=== PATIENT | male | born 1985 | race Caucasian/White ===

== ENCOUNTER 2019-06-19 23:05 | Emergency (ER) | payer OTHER ==
[~2019-06-19] VITALS: Ht 188 cm; Wt 122.5 kg
[2019-06-19 23:20] VITALS: BP 153/83
[2019-06-19] MEDS ORDERED: PRED20TA PO (23:33)
--- NOTE | 2019-06-19 23:35 | PHYS DOC ---
Past Medical History Past Medical History: No Pertinent History Past Surgical History: No Surgical History Additional Information: Nonsmoker Alcohol Use: Rarely Drug Use: None Adult General Chief Complaint Chief Complaint: CELLULITIS HPI HPI 34-year-old male presents with report of "wasp sting" to right ankle which occurred yesterday. Patient reports history of significant swelling due to bee stings. Patient denies respiratory distress or involvement. Reports going to work today and wears lace up work boots. Reports upon taking off boots tonight he noted significant swelling and erythema to area. Patient reports noting some "yellow discharge" out of the site of the sting. Reports his spouse was concerned that he might have a "staph infection". Denies fever/chills. Review of Systems Review of Systems Constitutional: Denies fever or chills Eyes: Denies redness or eye pain : Denies dysuria or hematuria Musculoskeletal: Denies back pain; right ankle swelling Integument: Right ankle swelling and redness; Neurologic: Denies headache, focal weakness or sensory changes Complete systems were reviewed and found to be within normal limits, except as documented in this note. Current Medications Current Medications Current Medications Medications (Trade) Dose Ordered Sig/Perry Start Time Stop Time Status Last Admin Dose Admin Dexamethasone (Decadron) 10 mg 1X ONCE 06/19/19 23:45 06/19/19 23:44 DC 06/19/19 23:39 10 MG Allergies Allergies Allergies Coded Allergies Type Severity Reaction Last Updated Verified No Known Drug Allergies 06/19/19 No Physical Exam Physical Exam Constitutional: Well developed, well nourished, no acute distress, non-toxic appearance HENT: Normocephalic, atraumatic, oropharynx moist Eyes: Conjunctiva normal, no discharge Neck: Normal range of motion, supple Cardiovascular: Right foot CR < 2 sec, right DP and PT +2 Lungs & Thorax: No respiratory distress Skin: Warm, dry, right ankle with lateral swelling at sight of wasp sting with erythema, no induration or fluctuance Extremities: No deformity, ROM intact, right ankle swelling and erythema as above Neurologic: Alert and oriented X 3, no focal deficits noted Psychologic: Affect normal, judgement normal Current Patient Data Vital Signs Vital Signs Date Time Temp Pulse Resp B/P (MAP) Pulse Ox O2 Delivery O2 Flow Rate FiO2 06/19/19 23:20 97.9 77 16 153/83 (106) 99 Room Air 97.9 EKG EKG [] Radiology/Procedures Radiology/Procedures [] Course & Med Decision Making Course & Med Decision Making Patient presents with report of loss being to right ankle now with some erythema and swelling. Patient with concern for infectious process. Patient advised more likely localized inflammation. Symptomatic steroid provided. Patient offered wound cleaning with Neosporin placement as well as oral Benadryl which he deferred. Patient reports he will do both upon returning home. Patient also advised to elevate extremity. Prescription for continued steroid provided. Patient stable for discharge with outpatient follow-up with PCP. Discussed findings and plan with patient and family, who acknowledge understanding and agreement. Dragon Disclaimer Dragon Disclaimer This electronic medical record was generated, in whole or in part, using a voice recognition dictation system. Departure Departure Impression: Primary Impression: Wasp sting Disposition: HOME, SELF-CARE Condition: STABLE Referrals: NO PCP (PCP) Patient Instructions: Bee, Wasp, or Hornet Sting Additional Instructions: Use over the counter Benadryl 25mg (1 tab) four times daily for next few days as needed for swelling or redness. Clean wound daily with soap and water. Apply over the counter antibiotic ointment to sting site with a bandaid. Elevated affected limb to help with swelling. Scripts Prednisone (PREDNISONE) 20 Mg Tablet 2 TAB PO DAILY, #8 TAB Start this prescription tomorrow, Friday06/20/19 Prov: SAVAGE SEGURA DO 06/19/19 Problem Qualifiers Primary Impression: Wasp sting Encounter type: initial encounter Injury intent: undetermined intent Qualified Codes: T63.464A - Toxic effect of venom of wasps, undetermined, initial encounter SAVAGE SEGURA DO Jun 19, 2019 23:35
[2019-06-19] MEDS ORDERED: DEXAMETHASONE 4 MG TABLET PO ONE (23:45)
== END 2019-06-19 23:44 | disposition home or self-care (01) ==
LOC: ER 23:05
DX: T63.464A Toxic effect of venom of wasps, undetermined, initial encounter (principal); M79.89 Other specified soft tissue disorders; Y92.89 Other specified places as the place of occurrence of the external cause
CPT/HCPCS: 99283; J8540

== ENCOUNTER → 2019-08-02 | Outpatient (CLI) | payer OTHER ==
[~2019-08-02] MED LIST: PRED20TA PO
--- NOTE | 2019-08-02 11:51 | KCIC ---
7 views lumbar spine without comparison for low back pain, radiating down the bilateral lower extremities. FINDINGS: There is no fracture or acute osseous or alignment abnormality of the lumbar spine. There is straightening of the normal lumbar lordosis, with mild dextrocurvature of the lumbar spine perhaps due to compensatory muscle spasm. Intervertebral disc spaces are well-maintained. There are mild degenerative changes of the lower lumbar facets. No pars defects are identified. No alignment abnormalities are elicited with flexion or extension. IMPRESSION: 1. No acute osseous normality. 2. There is straightening of lumbar lordosis with a mild dextrocurvature suggestive of compensatory muscle spasm. Electronically signed by: Daniel Wyane MD (08/02/2019 11:48 AM) [id number]
== END | disposition home or self-care (01) ==
LOC: KCIC 08:54
PROVIDERS: ATTEND Chiropractor
DX: M54.5 Low back pain (principal); M40.46 Postural lordosis, lumbar region
CPT/HCPCS: 72114

== ENCOUNTER → 2019-08-18 | Outpatient (CLI) | payer OTHER ==
--- NOTE | 2019-08-18 13:56 | KCIC ---
MRI Lumbar Spine without contrast History: Chronic low back pain, bilateral lower extremity pain with certain movements Technique: Multiplanar, multi sequential noncontrast MR imaging was performed of the lumbar spine. Comparison: None Findings: Lumbar vertebral body stature is maintained. There is very minimal posterior subluxation L4 relative to L5. Conus terminates near the superior aspect of L1. There are annular tears posteriorly and anteriorly at L4-5, negligible posterior subluxation L5 relative S1 and L3 relative to L4. There is mild L4-5 degenerative disc disease. There is no significant marrow edema. 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 L1-2, L2-3: These levels were not included on the axial images. Neural foramina and spinal canal are overall adequate. L3-L4: Spinal canal and neural foramina are adequate. L4-L5: There is disc osteophyte complex with superimposed approximate 3 mm AP protrusion with indentation upon the ventral thecal sac somewhat greater in the right lateral recess. There is minimal buckling of the ligamentum flavum. There is moderate right and [id number] left lateral recess stenosis, degree of contact of the descending L5 nerve roots greater on the right. There is very minimal narrowing of the anterior right neural foramen by disc osteophyte complex, left neural foramen overall adequate. L5-S1: Spinal canal and neural foramina are overall adequate. Impression: 1. There is minimal posterior subluxation L4 relative to L5, negligible posterior subluxation L3 relative to L4 and L5 relative to S1. There is mild L4-5 degenerative disc disease. There is disc osteophyte complex and shallow protrusion L4-5 contributing to [id number], right greater than left lateral recess stenosis, near the descending L5 nerve roots greater on the right. 2. 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 Electronically signed by: Odell Boyd MD (08/18/2019 1:53 PM) [id number]
== END | disposition home or self-care (01) ==
LOC: KCIC MRI 08:33
PROVIDERS: ATTEND Chiropractor
DX: M51.36 Other intervertebral disc degeneration, lumbar region (principal); M51.26 Other intervertebral disc displacement, lumbar region; M48.061 Spinal stenosis, lumbar region without neurogenic claudication; G89.29 Other chronic pain; M25.78 Osteophyte, vertebrae
CPT/HCPCS: 72148